=== PATIENT | female | born 1985 | race Caucasian/White ===

== ENCOUNTER 2020-06-08 12:41 | Emergency (ER) | payer MEDICARE, OTHER ==
[~2020-06-08 12:41] MED LIST: BENTYL 20MG TAB20 MG PO; CIPRO500 MG PO; COLACE 100MG C100 MG PO; FLAGYL500 MG PO; IBUPROFEN600 MG PO; NORCO 10-325 T1 EACH PO; NORFLEX 100 MG100 MG PO; PRENATAL VITAM1 EAC4 PO; Voltaren Gel 1 % TOP; ZOFRAN4 MG PO
[2020-06-08] MEDS ORDERED: IBUPROFEN600 MG PO (15:14)
== END 2020-06-08 15:32 | disposition home or self-care (01) ==
LOC: ER1 12:41
PROC: 2W3QXYZ Immobilization of Right Lower Leg using Other Device (ICD-10-PCS; principal; 2020-06-08)
DX: S83.91XA Sprain of unspecified site of right knee, initial encounter (principal); Z96.651 Presence of right artificial knee joint
CPT/HCPCS: 29530; 73564; 99283